=== PATIENT | female | born 1980 | race Caucasian/White ===

== ENCOUNTER 2022-12-10 07:33 | Outpatient (CLI) | payer SELFPAY ==
--- NOTE | 2022-12-10 07:43 | MM_ITS ---
WS: [id number] DIAGNOSTIC BILATERAL DIGITAL BREAST TOMOSYNTHESIS MAMMOGRAPHY WITH CAD LEFT breast ultrasound, limited HISTORY: LEFT breast burning and pain. COMPARISON: None available. TECHNIQUE: Bilateral craniocaudad, mediolateral oblique, and mediolateral views are submitted with to mosynthesis and SM. Spot compression LEFT CC. Computer aided detection utilized. Breast composition: The breasts are heterogeneously dense, which may obscure small masses. There are no focal masses persist. No skin thickening or nipple retraction. No calcification. LEFT breast ultrasound, limited. Ultrasound is directed to the area of pain in the upper outer quadrant of the LEFT breast. No masses or distortion. No skin thickening. MM/[place] [id number] IMPRESSION: BI-RADS: 2-Benign FOLLOW UP: 1 Year Follow-up
--- NOTE | 2022-12-10 09:08 | US_ITS ---
WS: [id number] DIAGNOSTIC BILATERAL DIGITAL BREAST TOMOSYNTHESIS MAMMOGRAPHY WITH CAD LEFT breast ultrasound, limited HISTORY: LEFT breast burning and pain. COMPARISON: None available. TECHNIQUE: Bilateral craniocaudad, mediolateral oblique, and mediolateral views are submitted with to mosynthesis and SM. Spot compression LEFT CC. Computer aided detection utilized. Breast composition: The breasts are heterogeneously dense, which may obscure small masses. There are no focal masses persist. No skin thickening or nipple retraction. No calcification. LEFT breast ultrasound, limited. Ultrasound is directed to the area of pain in the upper outer quadrant of the LEFT breast. No masses or distortion. No skin thickening. US/US breast LT limited* [id number] IMPRESSION: BI-RADS: 2-Benign FOLLOW UP: 1 Year Follow-up
== END 2022-12-10 07:34 | disposition home or self-care (01) ==
LOC: RAD 07:41 → MOBLMAM 07:42 → RAD 08:11
PROVIDERS: Visit Provider Nurse Practitioner Family
DX: Z12.31 Encounter for screening mammogram for malignant neoplasm of breast (principal)
CPT/HCPCS: 76642; 77062; G0279

== ENCOUNTER → 2025-01-12 13:19 | Outpatient (BNVA) | payer BC, SELFPAY | PROVIDERS: Visit Provider Obstetrics & Gynecology | DX: N94.10 Unspecified dyspareunia (principal); Z98.890 Other specified postprocedural states | CPT/HCPCS: 76830 ==